=== PATIENT | female | born 1985 | race Caucasian/White ===

== ENCOUNTER 2019-02-11 07:46 | Day surgery (SDC) | payer OTHER ==
[2019-02-10 16:45] VITALS: BMI 30.2
--- NOTE | 2019-02-11 09:14 | HP ---
Past Medical History - Primary Care Physician PCP:: Tomasz Trevino - Admission Chief Complaint: 34yo female P2 with retained Mirena IUD for > 5yrs admitted for hysteroscopy and removal of IUD. 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: No: Alzheimer's, CVA, Dementia, Migraine, Multiple Sclerosis, Peripheral Neuropathy, Parkinson's, Seizure, Syncope, TIA, Vertigo, Other Cardiovascular: No: AFIB, Aneurysm, Aortic Insufficiency, Aortic Stenosis, CAD, CHF, Deep Vein Thrombosis, HTN, Hyperlipdemia, MN, Mitral Insufficiency, Mitral Stenosis, Murmur, Pulmonary Hypertension, Other Pulmonary: No: Asthma, Bronchitis, Cancer, COPD, O2 Dependent, Pneumonia, Previously Intubated, Pulmonary Embolus, Pulmonary Fibrosis, Sleep Apnea, Other Gastrointestinal: No: Ascites, Cancer, Constipation, Crohn's Disease, Diverticulitis, Diverticulosis, Esophageal Varices, Gastritis, GERD, GI Bleed, Hemorrhoids, Hiatal Hernia, Inflamatory Bowel Disease, Irritable Bowel Disease, Pancreatitis, Peptic Ulcer Disease, Ulcerative Colitis, Other Hepatobiliary: No: Cirrhosis, Cholelithiasis, Cholecystitis, Choledocholithiasis , Hepatitis A, Hepatitis B, Hepatitis C, Other Renal/: No: Renal Failure, Renal Inusuff, BPH, Cancer, Hematuria, Hemodialysis , Neurogenic Bladder, Renal Calculi, UTI, Other Reproductive: No: Ectopic , Endometriosis, Fibroids, PID, Polycystic Ovary Syndrome, Postmenopausal, Other ...Para: 2 Additional OB History: x 2 Heme/Onc: No: Anemia, B12 Deficiency, Bleeding Disorder, Cancer, Current Chemotherapy, Current Radiation Therapy, Hemochromatosis, Hypercoaguable State, Myeloproliferative Synd, Sickle Cell Disease, Sickle Cell Trait, Thrombocytopenia, Other Infectious Disease: No: AIDS, C-Diff, Herpes Zoster, HIV, MRSA, STD's, Tuberculosis, VREF, Other Psych: No: Addictions, Anxiety, Bipolar, Depression, Panic, Psychosis, Schizophrenia, Other Musculoskeletal: No: Bursitis, Chronic low back pain, Hemiparesis, Hemiplegia, Osteoarthritis, Paraplegia, Other Rheumatology: No: Fibromyalgia, Gout, Lupus, Rheumatoid Arthritis, Sarcoidosis, Vasculitis, Other ENT: No: Allergic Rhinitis, Sinusitis, Other Endocrine: No: Tay's Disease, Guille's Disease, Diabetes Insipidus, Diabetes Mellitus, Hyperparathyroidism, Hyperthyroidism, Hypothyroidism, Osteopenia, SIADH, Other Dermatology: No: Basal Cell, Cellulitis, Eczema, Melanoma, Psoriasis, Squamous Cell, Other - Past Surgical History Past Surgical History: Yes: Breast Biopsy Hx Myomectomy: No Hx Transabdominal Cerclage: No - Smoking History Smoking history: Never smoked Have you smoked in the past 12 months: No - Alcohol/Substance Use Hx Alcohol Use: No History of Substance Use: reports: None - Social History Usual Living Arrangement: Yes: With Spouse ADL: Independent History of Recent Travel: No Home Medications - Allergies Allergies/Adverse Reactions: Allergies Allergy/AdvReac Type Severity Reaction Status Date / Time No Known Allergies Allergy Verified 02/10/19 16:39 - Home Medications Home Medications: Ambulatory Orders NK [No Known Home Medication] 02/10/19 Family Disease History - Family Disease History Family Disease History: Other: Father (HTN), Mother (HTN) Review of Systems - Review of Systems Constitutional: reports: No Symptoms Eyes: reports: No Symptoms HENT: reports: No Symptoms Neck: reports: No Symptoms Cardiovascular: reports: No Symptoms Respiratory: reports: No Symptoms Gastrointestinal: reports: No Symptoms Genitourinary: reports: No Symptoms Breasts: reports: No Symptoms Reported Musculoskeletal: reports: No Symptoms Integumentary: reports: No Symptoms Neurological: reports: No Symptoms Endocrine: reports: No Symptoms Hematology/Lymphatic: reports: No Symptoms Psychiatric: reports: No Symptoms Pain Intensity: 0 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 Vital Signs: Vital Signs Temperature 98.2 F 02/11/19 08:21 Pulse Rate 83 02/11/19 08:21 Respiratory Rate 18 02/11/19 08:21 Blood Pressure 117/65 02/11/19 08:21 O2 Sat by Pulse Oximetry (%) 98 02/11/19 08:21 Constitutional: Yes: Well Nourished, No Distress, Calm Eyes: Yes: WNL, Conjunctiva Clear HENT: Yes: WNL, Atraumatic, Normocephalic Neck: Yes: WNL, Supple, Trachea Midline Cardiovascular: Yes: WNL, Regular Rate and Rhythm Respiratory: Yes: WNL, Regular, CTA Bilaterally Gastrointestinal: Yes: WNL, Normal Bowel Sounds, Soft ...Rectal Exam: Yes: Deferred Renal/: Yes: WNL Pelvis: Yes: WNL External Genitalia: Yes: Normal Internal Exam Deferred: No Vaginal Exam: Yes: Normal Cervix: Yes: Normal Uterus: Yes: Normal Adnexa: Normal: Left, Right Musculoskeletal: Yes: WNL Extremities: Yes: WNL Edema: No Integumentary: Yes: WNL Neurological: Yes: WNL, Alert, Oriented ...Motor Strength: WNL Psychiatric: Yes: WNL, Alert, Oriented Imaging - Results Ultrasound: Report Reviewed Assessment/Plan 34yo female P2 with retained Mirena IUD for > 5yrs admitted for hysteroscopy and removal of IUD. We had discussed the risks, benefits, alternatives of surgery at length including but not limited to infection, bleeding, scarring, perforation, amenorrhea, infertility, hysterectomy, etc. The pt verbalized understanding and requested to proceed with surgery. I emphasized that all surgeries have risks and no guarantees can be provided.
[2019-02-11] MEDS ORDERED: PROPOFOL 20 ML ONE (09:20)
[2019-02-11] MEDS ORDERED: MIDAZOLAM HCL 2 MG/2 ML SINGLE DOSE VIAL ONE (09:20)
[2019-02-11] MEDS ORDERED: LIDOCAINE HCL/PF 2% SDV 5ML VIAL ONE (09:23)
[2019-02-11] MEDS ORDERED: DEXAMETHASONE SOD PHOSPHATE 4 MG/1 ML VIAL ONE (09:46)
[2019-02-11] MEDS ORDERED: KETOROLAC TROMETHAMINE 30 MG/1 ML VIAL ONE (09:46)
[2019-02-11] MEDS ORDERED: ceFAZolin SODIUM 1 GM VIAL ONE (09:46)
[2019-02-11] MEDS ORDERED: PROMETHAZINE HCL 25 MG/1 ML VIAL IVPB PRN (10:17)
[2019-02-11] MEDS ORDERED: ACETAMINOPHEN 500 MG TABLET (FP) PO PRN (10:17)
[2019-02-11] MEDS ORDERED: LACTATED RINGERS SOLUTION 1,000 ML IV SCH (10:30)
--- NOTE | 2019-02-11 11:57 | OP ---
Operative Note - Note: Operative Date: 02/11/19 Pre-Operative Diagnosis: Retained IUD Operation: Hysteroscopy, removal of IUD Findings: Retained IUD w/in uterine cavity. Normal uterus and uterine cavity. Post-Operative Diagnosis: Same as Pre-op Surgeon: Tomasz Trevino Anesthesiologist/COVERING MACHINE OPERATOR: Milton Self Anesthesia: General Specimens Removed: IUD/Mirena Estimated Blood Loss (mls): 2 Blood Volume Replaced (mls): 0 Fluid Volume Replaced (mls): 500 Operative Report Dictated: Yes
[2019-02-11 12:03] VITALS: TEMP 97.6
[2019-02-11 12:40] VITALS: BP 114/68; PULSE 79
--- NOTE | 2019-02-12 09:52 | OP ---
DATE OF OPERATION: 02/11/2019 PREOPERATIVE DIAGNOSIS: Retained intrauterine device. POSTOPERATIVE DIAGNOSIS: Retained intrauterine device. PROCEDURE: Hysteroscopy, removal of retained intrauterine device. SURGEON: Otto Rodríguez MD ANESTHESIOLOGIST: EDMUND Beltre ANESTHESIA: General. COMPLICATIONS: None. PATHOLOGY: Mirena IUD for gross examination only. ESTIMATED BLOOD LOSS: 2 mL. INTRAVENOUS FLUIDS: 500 mL. FINDINGS: Examination under anesthesia revealed a small, mobile uterus; no pelvic or adnexal masses. The hysteroscopy revealed an intrauterine device within proper position; otherwise, a normal uterine cavity. DESCRIPTION OF PROCEDURE: The patient was met preoperatively. Risks, benefits, and alternatives of surgery were discussed in details. All questions were answered. The patient was brought to the OR with the IV running. She was placed on a surgical table in a supine position. The general anesthesia was achieved without difficulty. The patient was then placed in a dorsal lithotomy position using adjustable Edward stirrups. She was prepped and draped in the usual sterile fashion. A timeout was conducted as per standard protocol. A weighted speculum was introduced inside the patient's vagina with good visualization of the cervix. The cervix was grasped with a single-tooth tenaculum. The cervical os was gently dilated to accommodate a size 21 Mcdaniels dilator. An operative hysteroscope was introduced inside the uterus. The IUD was noted to be within the uterine cavity. The IUD string was wrapped around the intrauterine device. The uterine cavity was normal. A grasping forcep was then used to remove the IUD without complications. Once this was completed, all of the instruments were removed from the patient. The patient was returned to supine position. She was then transferred to recovery room in stable condition and awake. Sponge, lap, and instrument counts were correct. OTTO RODRÍGUEZ M.D. [id number]
--- NOTE | 2019-02-14 17:09 | PATH ---
Surgical Pathology Report Patient Name: SREE CORDOBA Med. Rec. #: [id number] /Age/Gender: 1985 (Age: 34) / F Account: [id number] Location: [facility] SUR[facility] Taken: 02/11/2019 Received: 02/11/2019 Reported: 02/14/2019 Physicians: Tomasz Trevino M.D. Specimen(s) Received INTRAUTERINE DEVICE Clinical History Displacement of IUD Final Diagnosis INTRAUTERINE DEVICE (IUD), REMOVAL: FOREIGN BODY MATERIAL CONSISTENT WITH INTRAUTERINE DEVICE (IUD). MACROSCOPIC DIAGNOSIS. Electronically Signed Nkechi Davis M.D. Gross Description Received fresh labeled "intrauterine device," is a 3.1 cm in length T-shaped device with attached string, consistent with an intrauterine device. No soft tissue is present. No sections are submitted, gross only. /02/11/2019 saudi/02/11/2019
== END 2019-02-11 13:15 | disposition home or self-care (01) ==
LOC: JASU-SURG 07:46
PROVIDERS: ATTEND Obstetrics & Gynecology
PROC: 0UC98ZZ Extirpation of Matter from Uterus, Via Natural or Artificial Opening Endoscopic (ICD-10-PCS; principal; 2019-02-11 09:30)
DX: T83.39XA Other mechanical complication of intrauterine contraceptive device, initial encounter (principal)
CPT/HCPCS: 84703; 88300-TC; 94760

== ENCOUNTER 2021-04-10 05:55 | Inpatient (IN) | payer OTHER ==
[2021-04-10] MEDS ORDERED: ACETAMINOPHEN 325 MG TABLET (FP) PO PRN (06:54)
[2021-04-10] MEDS ORDERED: BENZOCAINE 28 GM HEMORRHOIDAL OINTMENT TP PRN (06:54)
[2021-04-10] MEDS ORDERED: WITCH HAZEL 50% (TUCKS) 40 PAD/JAR PAD TP PRN (06:54)
[2021-04-10] MEDS ORDERED: BISACODYL 10 MG SUPP.RECT RC PRN (06:54)
[2021-04-10] MEDS ORDERED: BENZOCAINE 20% 57 GM BOTTLE TP PRN (06:54)
[2021-04-10] MEDS ORDERED: METHYLERGONOVINE MALEATE 0.2 MG/1 ML AMP IM PRN (06:54)
[2021-04-10] MEDS ORDERED: OXYTOCIN 20 UNITS in 0.9% NS 20 UNIT/1,000 ML INFUS.BAG IV SCH (07:00)
[2021-04-10 07:15] VITALS: BMI 45.3
[2021-04-10] MEDS: IBUPROFEN 600 MG TABLET (FP) PO PRN ×2 (07:20→17:15)
[2021-04-10] MEDS: DEXTROSE 5%-LACTATED RINGERS 1,000 ML IV SCH (07:43)
[2021-04-10 07:49] LABS: CORD HCO3 21.4 mmHg (20-29); CORD PCO2 40.2 mmHg (30-78); CORD pH 7.344 (7.14-7.44)
[2021-04-10 07:52] LABS: CORD BASE EXCESS -5.1 mmol/L (0-2); CORD PCO2 37.4 mmHg (30-78); CORD pH 7.346 (7.14-7.44)
[2021-04-10] MEDS ORDERED: FERROUS SO4 325 MG TABLET (FP) ONE (08:36)
[2021-04-10] MEDS ORDERED: PRENATAL VITAMINS W/ FOLIC ACID TABLET (FP) PO ONE (08:36)
[2021-04-10] MEDS: FERROUS SO4 325 MG TABLET (FP) PO SCH ×2 (08:42→17:15)
[2021-04-10] MEDS: PRENATAL VITAMINS W/ FOLIC ACID TABLET (FP) PO SCH (09:18)
[2021-04-10 09:24] LABS: BASO % 0.3 % (0-2.0); EOS % 0.5 % (0-4.5); HEMATOCRIT 35.6 % (32.4-45.2); HEMOGLOBIN 11.9 GM/dL (10.7-15.3); LYMPH % 10.3 % (8-40); MCH 29.4 pg (25.7-33.7); MCHC 33.5 g/dl (32.0-36.0); MEAN CELL VOLUME 87.7 fl (80-96); MEAN PLT VOLUME 10.8 fl (7.5-11.1); MONO % 7.9 % (3.8-10.2); PLATELET COUNT 139 10^3/uL (134-434); RBC 4.05 M/mm3 (3.60-5.2); RDW 13.9 % (11.6-15.6); WHITE BLOOD COUNT 9.6 K/mm3 (4.0-10.0)
[2021-04-10 09:38] LABS: EPI CELLS >36 /uL (0-25.1); HYALINE CASTS 8 /uL (0-3.1); URINE APPEARANCE CLOUDY; URINE BACTERIA 47 /uL (0-1359); URINE BILIRUBIN 1+ (NEGATIVE); URINE COLOR DK YELLOW; URINE GLUCOSE (UA) NEGATIVE (NEGATIVE); URINE KETONE 2+ (NEGATIVE); URINE LEUK ESTERASE NEGATIVE (NEGATIVE); URINE NITRITE NEGATIVE (NEGATIVE); URINE PROTEIN 2+ (NEGATIVE); URINE RBC 1511 /uL (0-23.9)
[2021-04-10 09:51] LABS: CALCIUM 8.4 mg/dL (8.5-10.1)
[2021-04-10 09:54] LABS: SGPT/ALT 24 U/L (13-61); URIC ACID 4.9 mg/dL (2.6-7.2)
[2021-04-10 09:55] LABS: CREATININE 0.7 mg/dL (0.55-1.3); SGOT/AST 21 U/L (15-37)
[2021-04-10 10:35] LABS: URINE WBC 127.1 /uL (0-25.8)
[2021-04-11 08:25] LABS: BASO % 0.4 % (0-2.0); EOS % 1.1 % (0-4.5); HEMATOCRIT 32.2 % (32.4-45.2); HEMOGLOBIN 10.8 GM/dL (10.7-15.3); LYMPH % 16.3 % (8-40); MCH 29.8 pg (25.7-33.7); MCHC 33.7 g/dl (32.0-36.0); MEAN CELL VOLUME 88.5 fl (80-96); MEAN PLT VOLUME 10.5 fl (7.5-11.1); MONO % 12.3 % (3.8-10.2); NEUT % 69.9 % (42.8-82.8); PLATELET COUNT 130 10^3/uL (134-434); RBC 3.63 M/mm3 (3.60-5.2); WHITE BLOOD COUNT 10.1 K/mm3 (4.0-10.0)
[2021-04-11] MEDS: FERROUS SO4 325 MG TABLET (FP) PO SCH ×2 (08:44→17:01)
[2021-04-11] MEDS: IBUPROFEN 600 MG TABLET (FP) PO PRN ×2 (10:50→19:34)
[2021-04-11] MEDS: PRENATAL VITAMINS W/ FOLIC ACID TABLET (FP) PO SCH (11:50)
[2021-04-11] MEDS ORDERED: SENNOSIDES/DOCUSATE COMBO (SENNA PLUS) TABLET (UD) PO PRN (22:00)
[2021-04-12] MEDS: DEXTROSE 5%-LACTATED RINGERS 1,000 ML IV SCH (07:28)
[2021-04-12] MEDS: FERROUS SO4 325 MG TABLET (FP) PO SCH (08:53)
[2021-04-12] MEDS: PRENATAL VITAMINS W/ FOLIC ACID TABLET (FP) PO SCH (09:21)
[2021-04-12 11:01] VITALS: BP 111/84; PULSE 92; TEMP 98.6
== END 2021-04-12 13:40 | disposition home or self-care (01) | DRG 807 ==
LOC: JLDR 05:55 → J3W 09:38
PROVIDERS: ADMIT Obstetrics & Gynecology; ATTEND Obstetrics & Gynecology
PROC: 10E0XZZ Delivery of Products of Conception, External Approach (ICD-10-PCS; principal; 2021-04-10)
DX: O70.0 First degree perineal laceration during delivery (principal); Z37.0 Single live birth; Z3A.39 39 weeks gestation of pregnancy
CPT/HCPCS: 36415; 36600; 59409; 80048; 81003; 82803; 84450; 84460; 84550; 85025; 86780; 86850; 86900; 86901; C9803; U0003; U0005

== ENCOUNTER 2022-04-28 04:15 | Day surgery (SDC) | payer OTHER ==
[2022-04-24 13:27] VITALS: BMI 35.9
[2022-04-28] MEDS ORDERED: BUPIVACAINE HCL/PF 0.5% (5MG/ML) 10 ML VIAL ONE (08:33)
[2022-04-28] MEDS ORDERED: MIDAZOLAM HCL 2 MG/2 ML SINGLE DOSE VIAL ONE (08:35)
[2022-04-28] MEDS ORDERED: ceFAZolin SODIUM 1 GM VIAL IVPB ONE (09:44)
[2022-04-28] MEDS ORDERED: BUPIVACAINE HCL/PF 0.5% (5MG/ML) 10 ML VIAL IJ ONE ×3 (09:56→10:16)
[2022-04-28] MEDS ORDERED: PROPOFOL 20 ML ONE (10:00)
[2022-04-28] MEDS ORDERED: SUCCINYLCHOLINE CHLORIDE 200 MG/10 ML SYRINGE ONE (10:01)
[2022-04-28] MEDS ORDERED: ONDANSETRON 4 MG/2 ML VIAL IVPUSH ONE (10:39)
[2022-04-28] MEDS ORDERED: DEXAMETHASONE SOD PHOSPHATE 4 MG/1 ML VIAL IVPUSH ONE ×2 (10:39→10:58)
[2022-04-28] MEDS ORDERED: ONDANSETRON 4 MG/2 ML VIAL IVPUSH PRN (10:39)
[2022-04-28 12:53] VITALS: RESP 18
[2022-04-28] MEDS ORDERED: oxyCODONE HCL 5 MG TABLET PO ONE (13:00)
[2022-04-28 15:33] VITALS: BP 108/73; PULSE 72; TEMP 98
== END 2022-04-28 15:28 | disposition home or self-care (01) ==
LOC: JASU-SURG 04:15
PROVIDERS: ATTEND Obstetrics & Gynecology
PROC: 0UT74ZZ Resection of Bilateral Fallopian Tubes, Percutaneous Endoscopic Approach (ICD-10-PCS; principal; 2022-04-28 09:56)
DX: Z30.2 Encounter for sterilization (principal)
CPT/HCPCS: 81025; 86850; 86900; 86901; 88302-TC; 94010; 94760